=== PATIENT | male | born 1975 | race Caucasian/White ===

== ENCOUNTER 2020-03-09 19:11 | Emergency (ER) | payer OTHER ==
[2020-03-09] MEDS ORDERED: EPIPEN 2-P0.3 MG/0.3 IM (19:50)
== END 2020-03-09 20:19 | disposition home or self-care (01) ==
LOC: FER 19:11
DX: T78.09XA Anaphylactic reaction due to other food products, initial encounter (principal); F17.210 Nicotine dependence, cigarettes, uncomplicated; M19.90 Unspecified osteoarthritis, unspecified site; Z79.1 Long term (current) use of non-steroidal anti-inflammatories (NSAID)
CPT/HCPCS: 96372; J1200; J2930